=== PATIENT | male | born 1970 | race Caucasian/White ===

== ENCOUNTER → 2019-12-23 16:36 | Outpatient (BNVA) | payer OTHER, SELFPAY | PROVIDERS: PCP Nurse Practitioner Family; Visit Provider Registered Nurse | DX: N41.0 Acute prostatitis (principal) | CPT/HCPCS: 81000 ==

== ENCOUNTER 2020-09-28 06:53 | Outpatient (CLI) | payer OTHER, SELFPAY ==
--- NOTE | 2020-09-28 07:15 | MR_ITS ---
WS: [id number] MRI LUMBAR SPINE NONCONTRAST TECHNIQUE: Sagittal T1, T2 and STIR imaging. Axial T1 and T2 imaging. CLINICAL INFORMATION: M54.5 - Low back pain COMPARISON: None. FINDINGS: Counting performed from the craniocervical junction. L5 is sacralized with partial disc spa ce L5-S1. Recommend plain film correlation prior to surgical intervention. Lumbar curve. No acute compression. Prominent Right subarticular disc protrusion L4-5. L1-L2: Normal. L2-L3: Normal. L3-L4: Mild annular bulging. Tiny annular tear. Narrowing of the subarticular recess bilaterally and traversing L4 nerve roots. Mild left greater than right foraminal narrowing. Tiny annular tear. Mild facet arthropathy. L4-L5: Prominent right articular disc protrusion impinges the traversing right L5 nerve root in the s ubarticular recess. Slight caudal migration of disc material. Mild central canal stenosis. Slight imp ingement on the proximal exiting right L4 nerve root with mild right foraminal narrowing. Left forame n is patent. Moderate facet arthropathy. L5-S1: L5 is sacralized. Spinal canal and foramen are patent. Visualized pelvic bony structures: Normal. Paravertebral soft tissues: Normal. MR/MR lumbar spine wo con* [id number] IMPRESSION: 1. Counting performed from the craniocervical junction. L5 is sacralized. Manuel mmend plain film correlation prior to surgical intervention. 2. Prominent right L4-5 subarticular disc protrusion impinges the traversing r ight L5 nerve root in the subarticular recess. Mild central canal stenosis. In addition slight impingement on the proximal exiting L4 nerve root with mild rig ht foraminal narrowing. 3. Mild annular bulging L3-4 with a tiny shallow central protrusion and annula r tear. Slight narrowing of the right greater than left subarticular recess. 4. Mild facet arthropathy L3-L4 and L4-L5.
== END 2020-09-28 06:54 | disposition home or self-care (01) ==
LOC: RADSHAW 06:57
PROVIDERS: PCP Nurse Practitioner Family; Visit Provider Nurse Practitioner Family
DX: M47.816 Spondylosis without myelopathy or radiculopathy, lumbar region (principal); M51.26 Other intervertebral disc displacement, lumbar region
CPT/HCPCS: 72148

== ENCOUNTER 2021-06-26 14:00 | Emergency (ER) | payer OTHER, SELFPAY ==
[2021-06-26] VITALS (7 sets, daily range): BP systolic 125–148; BP diastolic 75–88; PULSE 81–99; RESP 13–28; TEMP 36.7; O2SAT 98–100; BMI 29.5
--- NOTE | 2021-06-26 14:28 | XR_ITS ---
WS: [id number] Exam: XR abdomen min 2V [id number] Date/Time of Exam: 06/26/2021 2:37 PM Reason For Exam: Abd pain No bowel obstruction or free air. No sign of organ enlargement. Moderate amount retained stool in the colon. Circular opaque density seen in the mid pelvic region probably representing a reservoir relat ed to penile implant. XR/XR abdomen min 2V [id number] IMPRESSION: 1. No acute abdominal finding. Moderate amount retained stool in the colon.
--- NOTE | 2021-06-26 14:32 | ED_ITS ---
HPI - Skin/Abscess/Foreign Bdy General: Chief complaint: Skin/Abscess/Foreign Body Stated complaint: Personal Reasons Time Seen by Provider: 06/26/21 14:28 History of Present Illness: HPI narrative: 50 yo male present to the ER with complaints of retianed FB in the rectum. Slight rectal bleeding secondary to attempted retrieval. complaint: foreign body Onset (ago): hour(s) Relieving factors: none Exacerbating factors: none Associated symptoms: Reports no associated symptoms; Deny chills, fever(s), nausea or vomiting Treatments prior to arrival: other (attempted enema) Review of Systems Const: Denies: fever(s), chills, body aches, change in appetite, fatigue or malaise ENMT: Denies: throat pain, ear or mastoid pain, nasal discharge or nasal congestion Card: Denies: chest pain, edema, dyspnea on exertion or orthopnea Resp: Denies: dyspnea, productive cough or non-productive cough GI: Denies: abdominal pain, nausea, vomiting, hematemesis, coffee ground emesis, diarrhea, constipation, bloating, hematochezia or melena : Denies: flank pain, dysuria, urinary frequency or urinary urgency Skin/Breast: Denies: rash or pruritus PFSH ED PFSH: Surgical History History of surgery on arm Family History Other CAD (coronary artery disease) Cancer Diabetes Hypertension Social History Smoking and tobacco status: current every day smoker Lives independently: Yes Physical Exam Const: COMMON NORMALS: no acute distress GENERAL APPEARANCE: cooperative and comfortable ORIENTATION/CONSCIOUSNESS: Yes awake, Yes oriented to person, Yes oriented to place and Yes oriented to time HENMT: COMMON NORMALS: normocephalic, atraumatic and hearing grossly normal bilaterally HEAD & SCALP: normocephalic and atraumatic Neck/C-Spine: COMMON NORMALS: no JVD Resp: COMMON NORMALS: normal respiratory effort, No retractions, No use of accessory muscles and clear to auscultation bilaterally AUSCULTATION: clear to auscultation bilaterally Cardio: COMMON NORMALS: no JVD, regular rate, regular rhythm and No murmurs present (Cardio) RATE: regular rate RHYTHM: regular rhythm GI: COMMON NORMALS: Soft to palpation and No hepatosplenomegaly present AUSCULTATION: Yes normoactive bowel sounds PALPATION: Yes Soft to palpation, No Tenderness to palpation present (GI), No Guarding due to palpation present (GI) and Yes No hepatosplenomegaly present OTHER: Examination of the rectum there is a black rubber device protruding from the rectum with a series of large balls approximately 2 and half inches in diameter. 2 of them are outside of the rectum according on the x-ray there is appearance of to within the rectum. Extremity: COMMON NORMALS: normal to inspection, capillary refill normal, no clubbing, cyanosis or edema, no calf tenderness and no pedal edema Neuro: SENSORIUM/ORIENTATION: Yes oriented to person, Yes oriented to place and Yes oriented to time Skin: COMMON NORMALS: no rashes or lesions noted GENERAL SKIN EXAM: no rashes or lesions noted Procedures Procedural Sedation Indication: other Presedation Evaluation: Removal rectal foreign body Preparation: cardiac/vascular sonographer applied, pulse oximeter, supplemental O2 applied, reversal agents at bedside and suction/airway equipment at bedside IV Etomidate dose (mg): 10 Patient Tolerated Procedure: well and no complications Complications: none Rectal Disimpaction Time out performed rectal disimpaction: Yes Indication: other (Rectal foreign body) Sedation/Analgesia: other Technique: other (Retraction of protruding portion of foreign body) Patient Tolerated Procedure: well Complications: none Additional Comments: After sedation took effect of the rectal foreign body was removed without difficulty. Small amount of blood streaking no rectal tears noted. Patient tolerated procedure well Course Vital Signs: Vital signs: Vital Signs Temperature 98.1 F 06/26/21 14:16 Pulse Rate 87 06/26/21 16:13 Respiratory Rate 13 06/26/21 16:13 Blood Pressure 148/88 06/26/21 16:13 Pulse Oximetry 98 06/26/21 16:13 MDM - Skin/Abscess/Foreign Bdy MDM Narrative: Medical decision making narrative: Patient recovered from conscious sedation without difficulty. Apply topical lidocaine to rectal area as needed follow-up as needed. Discharge Plan Discharge Patient Disposition: Home Clinical Impression: Foreign body in anus and rectum Condition: Stable Prescriptions: New lidocaine 5 % ointment 1 applic topical QID PRN (Reason: rectal pain) Qty: 60 RF: 0 No Action Prilosec OTC 20 mg tablet,delayed release (DR/EC) 20 mg PO DAILY RF: 0 Vitamin C 500 mg Tablet 500 mg PO EVERY OTHER DAY RF: 0 Vitamin D3 1 cap PO EVERY OTHER DAY RF: 0 Discharge Orders: Discharge ED (Routine); Ordered 06/26/21 Ordered By: Jimmy Zarate Referrals: Deedee Power FNP [Primary Care Provider] - Discharge Diet: Usual diet Discharge Activity: Limit activity as instructed Patient Instructions: Opioid Safety Coding Level of Care Code ED [employer] Rep[employer]r for Chg Fwd Exam Comprehensive
--- NOTE | 2021-06-26 16:37 | PC.NURSE ---
PATIENT VITALS TAKEN AT 1555. ESRGIO RN, SALO RN, NOVA RN, DEJA RT, [facility] MEDICAL STUDENT, DR JASMINE PRESENT DURING PROCEDURE. TIME OUT CALLED AT 1600. ETOMIDATE 10 MG GIVEN AT 1600. PATIENT TOLERATED WELL, PLACED IN BED STIRRUPS. ITEM REMOVED FROM RECTUM AT 1602. THIS NURSE STAYED WITH THE PATIENT FOR 15 MINUTES AFTER PATIENT AWOKE FROM SEDATION. VITAL SIGNS TAKEN AND CHARTED IN VITAL SIGNS WORKLIST.
== END 2021-06-26 16:30 | disposition home or self-care (01) ==
PROVIDERS: Emergency Provider Family Medicine; PCP Nurse Practitioner Family
DX: T18.5XXA Foreign body in anus and rectum, initial encounter (principal); X58.XXXA Exposure to other specified factors, initial encounter; F17.210 Nicotine dependence, cigarettes, uncomplicated
CPT/HCPCS: 74019; 99284; J3490

== ENCOUNTER → 2022-12-19 10:04 | Outpatient (BNVA) | payer OTHER, SELFPAY | PROVIDERS: PCP Nurse Practitioner Family; Visit Provider Nurse Practitioner Family | DX: Z12.5 Encounter for screening for malignant neoplasm of prostate (principal); Z13.220 Encounter for screening for lipoid disorders; I10 Essential (primary) hypertension | CPT/HCPCS: 80053; 80061; G0103 ==